=== PATIENT | male | born 1995 ===

== ENCOUNTER 2021-06-04 08:27 | Outpatient (CLI) | payer OTHER ==
--- NOTE | 2021-06-04 09:11 | SLEEP CARE CONSULTATION ---
Information from patient questionnaire entered by Howie Whitfield. I have reviewed and concur with the information entered by Howie Whitfield. This document represents the service I personally performed and the decisions made by me, Janis Rock ARNP. History of Present Illness Service Date and Time: 06/04/2021826 Reason for Visit: New patient Chief Complaint: reports: Unrefreshed sleep, Snoring, Excessive daytime sleepiness, Observed pauses in breathing Date of Onset: Over a year Usual bedtime: 1100 PM - 0500 AM Time it takes to fall asleep: 10 mins Snores at night: Yes Observed to quit breathing while asleep: Yes Sleeps alone due to snoring: No Reasons for waking at night: reports: Snoring, Gasping for air Toss, Turn, or Twitch while sleeping: Yes Recalls having dreams: Yes Usually gets out of bed at: 0500 Feels refreshed in the morning: No Morning headache: Yes (1-2 times a week) Sleepy or fatigued during the day: Yes Ever fallen asleep while driving: No (no drowsy driving or accidents) Takes day naps: No Dreams during day naps: Yes Prior sleep studies: No Additional HPI information: I had the pleasure of seeing KORTNEY RANDHAWA today regarding the possibility of him having a sleep disorder. His current complaints are unrefreshed sleep, observed pauses in breathing and snoring. His tells him that he has pauses when sleeping for 20-30 seconds. She will have to wake him up because it scares her. He snores really loud. He wakes up feeling very tired and not refreshed. He will wake up at 5 AM every morning for many years. He is sleepy during the day. He can fall asleep after lunch if he sits quietly. He has remembered times when he will doze off for 3 minutes and remember a dream he was in and other times he does not remember his dreams when sleeping a full night. He states he grinds his teeth and talks in his sleep. He wakes up with headaches in the morning if he sleeps less than 5 hours, this happens 1-2 times a week. 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 Patient is single and lives in [place]. Have you smoked in the past 12 months: Yes Cigarettes per day (20/pack): 5 Years of smokin Smoking Pack Years: 2.0 Alcohol use: Yes Alcohol amount and frequency: 1 bottle of beer per week, social Caffeine use: Yes Caffeine amount and frequency: 1 coffee every day Family History Family history of sleep disordered breathing: Yes Family Hx Sleep Apnea: Father: Snoring, Sleep apnea - Untreated Allergies and Home Medications Drug allergies reviewed: Yes (penicillin) Home medication list reviewed: Yes (no daily medications) Allergy and home medication list: BCAA supplement Protein drinks Review of Systems Cardiovascular: denies: high blood pressure Respiratory: reports: shortness of breath Gastrointestinal: denies: heartburn Neurological: denies: headaches Psychiatric: denies: anxiety, depression Ear/Nose/Throat: reports: tonsillectomy. denies: injury to nose, wisdom teeth removed (only has one, none removed) Endocrine: denies: thyroid disease Physical Exam Blood Pressure: 138/60 Cuff size: wrist Heart Rate: 60 O2 Saturation: 99 Height: 5 ft 6 in Weight: 182 lb Body Mass Index: 29.3 BMI Classification: Overweight Neck circumference: 15.5 (inches) Mouth and throat: narrow oropharynx Soft palate: long Hard palate: normal Uvula: normal Uvula visualization: 50% Mallampati Class II Tongue: enlarged in size with teeth heart on lateral edges Tonsils: absent bilaterally Neck: normal w/o lymphadenopathy or thyromegaly Heart: regular rate and rhythm Lungs: clear bilaterally Impression and Plan 1. Suspected Obstructive Sleep Apnea-Hypopnea Syndrome, as suggested by a history of loud and irregular snoring, observed cessation of breath while asleep, gasping or choking in sleep, morning headache, unrefreshed sleep, cognitive impairment, and excessive daytime sleepiness. Narrow oropharynx and o besity are common predisposing factors for obstructive sleep apnea-hypopnea syndrome. I recommend proceeding to polysomnography to confirm the diagnosis and to assess severity. If the patient has significant sleep disordered breathing, a manual CPAP titration study will also be performed to find the optimal treatment pressure. I informed the patient of what the sleep studies involve and after some discussion, obtained agreement to proceed. The pathophysiology of obstructive sleep apnea-hypopnea syndrome was discussed with the patient and health risks of cardiovascular and cerebrovascular disease if not treated. AAS brochure for obstructive sleep apnea-hypopnea syndrome given and reviewed. Risks of drowsy driving discussed in detail and patient advised to avoid long distance driving and to press puller at the first sign of drowsiness. Patient agreed to plan. * Schedule polysomnography +- manual CPAP titration study and return in 1-2 weeks after the study to discuss result and initiate therapy. * Avoid long distance driving or driving when feeling sleepy. * Avoid alcohol, sedative and muscle relaxant around bedtime. * Attempt to lose weight. * Review instructions provided by trained office staff on how to prepare for the sleep study. * Return for follow-up after sleep study completed. Counseling Topics: Weight loss health impact Visit Type: In Office Time Spent with Patient (minutes): 31 Provider Statement: I spent 100% of the Face to Face Visit with the patient with greater than 50% spent counseling the patient and coordination of care.
[2021-06-04 09:12] VITALS: BP 138/60
== END 2021-06-04 08:28 | disposition home or self-care (01) ==
LOC: SC 08:27
PROVIDERS: ATTEND Nurse Practitioner Family
DX: R06.83 Snoring (principal); R06.81 Apnea, not elsewhere classified; R51.9 Headache, unspecified; G47.8 Other sleep disorders; R41.89 Other symptoms and signs involving cognitive functions and awareness; G47.10 Hypersomnia, unspecified
CPT/HCPCS: 99203; 99212

== ENCOUNTER 2021-06-09 13:01 | Outpatient (CLI) | payer OTHER | END 2021-06-09 13:02 | disposition home or self-care (01) | LOC: SC 13:01 | PROVIDERS: ATTEND Nurse Practitioner Family | DX: G47.33 Obstructive sleep apnea (adult) (pediatric) (principal) | CPT/HCPCS: 95806 ==

== ENCOUNTER 2021-07-01 09:07 | Outpatient (CLI) | payer OTHER ==
--- NOTE | 2021-07-01 09:36 | SLEEP CARE CONSULTATION ---
Information from patient questionnaire entered by Jahaira Colon. I have reviewed and concur with the information entered by Jahaira Colon. This document represents the service I personally performed and the decisions made by , Janis Rock ARNP. History of Present Illness Service Date and Time: 07/01/2021 09 Initial [place] Sleepiness Scale score: 15 (in 2020) Current [place] Sleepiness Scale score: 15 Additional HPI information: KORTNEY RANDHAWA returns for follow up and results of the recently performed home sleep study. I explained the pathophysiology behind obstructive sleep apnea. We then spent quite a bit of time discussing different treatment options. For mild obstructive sleep apnea, surgery and oral appliance are alternatives to nasal CPAP therapy but in moderate or severe cases, nasal CPAP is the most effective and reliable treatment. Because apnea is primarily in supine position, then positional management therapy could be effective. Methods discussed such as positioning with pillows, using a T-shirt with tennis balls in the back, and shown commercial products that have a pillow format on back to prevent supine sleep. I reviewed the impact of weight changes on sleep apnea and strongly recommended losing weight. Patient counseled not drink alcohol less than 4 hours before bedtime as it can increase snoring and apnea. Patient was cautioned about risks of drowsy driving until sleepiness symptoms resolve. Sleep Study - Results Type of Sleep Study: Home sleep study Prior sleep studies: No Polysomnography/Home Sleep Study results: Physician Impression: The quality of the study is good. The length of the study is adequate (> 240 minutes). Please also see the tabulated and graphic data. 1. Obstructive Sleep Apnea-Hypopnea (ICD-10 G47.33), mild, with an AHI of 9.0/hr and alivia SaO2 of 85%. During the study, the patient had 46 apneas (46 obstructive, 0 central, 0 mixed) and 7 hypopneas. The longest episode lasted 71.5 seconds. The respiratory events occurred almost exclusively during supine sleep (supine AHI was 10.5 and non-supine, 1.13). 2. Hypoxemia (ICD-10 R09.02), minimal, with the lowest oxygen saturation of 85 % and 0.4 minutes with SaO2 under 90%. Baseline oxygen saturation was normal (Average oxygen saturation was 96%). Allergies and Home Medications Home medication list reviewed: Yes (no changes) Review of Systems Review of systems same as previous: Yes (no changes) Physical Exam Heart Rate: 72 O2 Saturation: 99 Height: 5 ft 6 in Weight: 178 lb 12.8 oz Body Mass Index: 28.8 BMI Classification: Overweight Impression and Plan 1. Obstructive Sleep Apnea-Hypopnea Syndrome, mild, with lowest oxygen saturation of 85%. Obviously this is the cause of the patients symptoms of unrefreshed sleep, and excessive daytime sleepiness. Positive pressure therapy could benefit hypertension, diet controlled. Since patients apnea is primarily in supine position, patient advised to try positional therapy and agreed with plan. He is also advised to lose weight as this will reduce snoring and apnea. An oral appliance can also be used for snoring but often is not covered by insurance. Follow up is scheduled for one month to check effectiveness and if further evaluation indicated such a repeat study in supine position only to see if additional treatment indicated. * Positional therapy * Attempt to lose weight. * Avoid alcohol consumption near bedtime. * Avoid supine sleep * The patient is again cautioned about driving until sleepiness completely resolves. * Return one month after practicing positional therapy. I will assess response to therapy at that time. Counseling Topics: Weight loss health impact Visit Type: In Office Time Spent with Patient (minutes): 20 Provider Statement: I spent 100% of the Face to Face Visit with the patient with greater than 50% spent counseling the patient and coordination of care.
== END 2021-07-01 09:08 | disposition home or self-care (01) ==
LOC: SC 09:07
PROVIDERS: ATTEND Nurse Practitioner Family
DX: G47.33 Obstructive sleep apnea (adult) (pediatric) (principal); R09.02 Hypoxemia
CPT/HCPCS: 99212; 99213

== ENCOUNTER 2021-08-14 12:45 | Outpatient (CLI) | payer OTHER ==
--- NOTE | 2021-08-14 13:19 | SLEEP CARE CONSULTATION ---
Information from patient questionnaire entered by Suzie Moore. I have reviewed and concur with the information entered by Suzie Moore. This document represents the service I personally performed and the decisions made by me, Janis Rock ARNP. History of Present Illness Service Date and Time: 08/14/2021 1245 Previous diagnosis: Mild, Obstructive Sleep Apnea-Hypopnea Syndrome AHI: 9 Reason for follow up: other (6 weeks with positional therapy) Prior sleep studies: Yes Year and Where: 06/2021 [facility] Type of Sleep Study: Home sleep study HPI additional information: KORTNEY RANDHAWA was diagnosed to have mild, AHI 9.0, obstructive sleep apnea- hypopnea syndrome and returned today for Positional therapy 6 week follow-up. Sleep Study - Results Type of Sleep Study: Home sleep study Prior sleep studies: No CPAP Compliance Data Compliance data discussion: He states that most of the time he is able to stay on his side. He is using a positional belt to keep him on his side. His snoring has reduced. Subjective On therapy, patient: reports: sleeping better, awakening more refreshed, being more awake and alert during the day, more rested overall Initial [place] Sleepiness Scale score: 15 (in 2020) Current [place] Sleepiness Scale score: 11 Allergies and Home Medications Home medication list reviewed: Yes (no changes) Review of Systems Review of systems same as previous: Yes (no changes) Physical Exam Heart Rate: 78 O2 Saturation: 96 Height: 5 ft 6 in Weight: 186 lb (with boots/fatigues on) Body Mass Index: 29.9 BMI Classification: Overweight Impression and Plan 1. Obstructive Sleep Apnea-Hypopnea Syndrome, mild. Patient has been able to sleep consistently on his side with his positional belt. He states he does not notice a lot of difference from prior to positional therapy as far as fatigue and daytime sleepiness. His is much happier because he is not snoring loudly anymore at night. He wakes up feeling rested overall and has good sleep quality. Patient is going to have Lasix surgery and requires a letter stating that he can go without CPAP therapy post surgery to reduce complications. I composed a letter explaining that he is using positional therapy and does not require a CPAP post surgery. A copy was given to patient. Patient states he is not losing weight currently. I explained to him that if he gains weight it could increase the severity of his apneas. Patient was encouraged to lose we ight for their overall health and to reduce apneas. He voiced understanding. Patient's apnea severity and rationale for treatment to reduce apnea, improve sleep quality and reduce cardiovascular and cerebrovascular events was reviewed. * Continue positional therapy * Letter given to patient * Attempt to lose weight * Call this office if any problems * Return for follow up in 6 months, or sooner if concerns arise Counseling Topics: Weight loss health impact, Weight control Visit Type: In Office Time Spent with Patient (minutes): 22 Provider Statement: I spent 100% of the Face to Face Visit with the patient with greater than 50% spent counseling the patient and coordination of care.
== END 2021-08-14 12:46 | disposition home or self-care (01) ==
LOC: SC 12:45
PROVIDERS: ATTEND Nurse Practitioner Family
DX: G47.33 Obstructive sleep apnea (adult) (pediatric) (principal)
CPT/HCPCS: 99212; 99213

== ENCOUNTER 2021-10-25 18:13 | Emergency (ER) | payer OTHER ==
[2021-10-25 18:23] VITALS: BP 147/88
--- NOTE | 2021-10-25 18:25 | ED Physician Documentation ---
PD HPI OPHTHO - Stated complaint Stated Complaint: R EYE PX - Chief complaint Chief Complaint: Heent - History obtained from History obtained from: Patient - History of Present Illness Timing - onset: How many hours ago (2-3) Timing - duration: Hours (2-3) Timing - details: Abrupt onset (he was walking outside and got something blown into his eye. He saw something on surface of his eye, and washed it out when got into house. He persists with feeling of discomfort and says his vision is blurry. He is concerned that had PK eye surgery a month ago.) Location: Right Quality / character: Other (just surface discomfort feeling.) Associated symptoms: Redness, Tearing, Decreased vision. No: Photophobia, Double vision, Loss of vision Contributing factors: FB (something flew into eye in the wind outdoors.) Review of Systems Constitutional: denies: Fever, Chills Nose: denies: Rhinorrhea / runny nose, Congestion Throat: denies: Sore throat Respiratory: denies: Cough PD PAST MEDICAL HISTORY - Past Medical History Past Medical History: No Cardiovascular: None Respiratory: None Neuro: None Endocrine/Autoimmune: None GI: None : None HEENT: None Psych: None Musculoskeletal: None Derm: None - Past Surgical History Past Surgical History: Yes HEENT: Other - Present Medications Home Medications: Ambulatory Orders Medication Instructions Recorded Confirmed Ketotifen Fumarate [Alaway] 2 drops RIGHTEYE Q4H 3 Days #10 ml 10/25/21 - Allergies Allergies/Adverse Reactions: Allergies Allergy/AdvReac Type Severity Reaction Status Date / Time Penicillins Allergy Rash Verified 10/25/21 18:18 - Social History Does the pt smoke?: Yes Smoking Status: Current every day smoker Does the pt drink ETOH?: No - Immunizations Immunizations are current?: Yes PD ED PE NORMAL - Vitals Vital signs reviewed: Yes - General General: Alert and oriented X 3, No acute distress, Well developed/nourished PD ED PE EXPANDED - Eyes Eyes: Visual acuity - see nn (less on right eye. ), Right eye, Injected conj/sclera (mild to moderate hyperemia, with mild lower/lateral conjunctival swelling. ), Anterior chambers clear, Normal fundi, Other (IOP normal at 14). No: Corneal FB, Corneal abrasion, Fluorescein uptake, Hyphema Results - Vitals Vitals: Vital Signs - 24 hr 10/25/21 18:19 Temperature 36.3 C L Heart Rate 70 Respiratory 16 Rate Blood Pressure 147/88 H O2 Saturation 99 Oxygen O2 Source Room air PD MEDICAL DECISION MAKING - ED course Complexity details: considered differential (can check for abrasion, and dye u ptake. Also chambers and IOP. ), d/w patient ED course: normal exam except some conjunctival edema and redness. Presume that is affecting acuity. It may be just irritated or consider some "allergic" reaction (contact irritation) from the recent FB. Departure - Departure Disposition: 01 Home, Self Care Clinical Impression: Conjunctivitis, acute atopic Qualifiers: Laterality: right Qualified Code(s): H10.11 - Acute atopic conjunctivitis, right eye Condition: Stable Record reviewed to determine appropriate education?: Yes Instructions: ED Allergic Conjunctivitis Follow-Up: AMERICA CARTER DO [Primary Care Provider] - Prescriptions: Ketotifen Fumarate [Alaway] 2 drops RIGHTEYE Q4H 3 Days #10 ml Comments: I do not see any disruption on the surface of the eye nor any residual foreign body. There is some redness and mild inflammation of the conjunctive a and so I think you're having some irritation or allergic response to the material that had been in there. The inflammation on the surface is distorted in your vision at this point. I would anticipate that to improve into tomorrow the next day. There is no dye uptake on the surface of the eye so no signs of scratches abrasions or disruption of your flap from the recent PK surgery. The anterior and posterior chambers appear normal and the pressure in the eye is normal as well. At this point I would see how your I does into tomorrow and I would anticipate considerable improvement. If it's not all better or only moderately better, you could add an antihistamine eyedrop a few times a day presuming a more allergic type reaction on the surface. This medication is called ketotifen it is available prescription or [id number]. If your eye is mostly better into tomorrow than no need for this medicine. Tonight and tomorrow you can use the lubricating eyedrops that you have at home. If you're not completely better by Wednesday, follow-up with your social work specialist here in [facility]. Discharge Date/Time: 10/25/21 19:01
== END 2021-10-25 19:01 | disposition home or self-care (01) ==
LOC: ED 18:13
DX: H10.11 Acute atopic conjunctivitis, right eye (principal); F17.200 Nicotine dependence, unspecified, uncomplicated
CPT/HCPCS: 99282; 99283

== ENCOUNTER 2024-04-08 08:00 | Outpatient (CLI) | payer OTHER | END 2024-04-08 23:59 | disposition home or self-care (01) | LOC: LAB.N 08:00 | PROVIDERS: ATTEND Family Medicine | DX: L02.214 Cutaneous abscess of groin (principal) | CPT/HCPCS: 87070; 87077; 87205 ==

== ENCOUNTER 2024-04-12 13:55 | Emergency (ER) | payer OTHER ==
[2024-04-12 14:26] LABS: BASOPHILS % (AUTO) 0.4 %; EOSINOPHILS # (AUTO) 0.1 10^3/uL (0.0-0.7); EOSINOPHILS % (AUTO) 0.9 %; HGB - HEMOGLOBIN 16.5 g/dL (14.0-18.0); LYMPHOCYTES # (AUTO) 2.1 10^3/uL (1.5-3.5); LYMPHOCYTES % (AUTO) 37.1 %; MEAN CORPUSCULAR HEMOGLOBIN 30.1 pg (27.0-31.0); MEAN CORPUSCULAR HGB CONC 34.4 g/dL (32.0-36.0); MEAN CORPUSCULAR VOLUME 87.4 fL (80.0-94.0); MEAN PLATELET VOLUME 9.1 fL (7.4-11.4); MONOCYTES # (AUTO) 0.5 10^3/uL (0.0-1.0); MONOCYTES % (AUTO) 9.4 %; NEUTROPHILS # (AUTO) 2.9 10^3/uL (1.5-6.6); PLT - PLATELET COUNT 262 10^3/uL (130-450); RED BLOOD COUNT 5.49 10^6/uL (4.70-6.10); RED CELL DISTRIBUTION WIDTH 11.8 % (12.0-15.0); WHITE BLOOD COUNT 5.6 x10^3/uL (4.8-10.8)
[2024-04-12 14:40] LABS: ALBUMIN 5.1 g/dL (3.2-5.5); ALBUMIN/GLOBULIN RATIO 1.8 (1.0-2.2); BILIRUBIN,TOTAL 0.6 mg/dL (0.2-1.0); CALCIUM 10.4 mg/dL (8.5-10.3); CREATININE 1.1 mg/dL (0.6-1.3); POTASSIUM 4.8 mmol/L (3.5-4.5); TOTAL PROTEIN 7.9 g/dL (6.4-8.9)
[2024-04-12] MEDS ORDERED: iohexoL-300 100 ML VIAL ONE (18:19)
[2024-04-12] MEDS: iohexoL-300 100 ML VIAL IVP ONE (19:10)
--- NOTE | 2024-04-12 19:45 | CT Report ---
PROCEDURE: Abdomen/Pelvis W INDICATIONS: RUQ pain CONTRAST: 100ml [id number] TECHNIQUE: After the administration of intravenous contrast, a CT scan of the abdomen and pelvis was performed. Images were recorded and evaluated at appropriate window settings. Reformats: coronal and sagittal. F or radiation dose reduction, the following was used: automated exposure control, adjustment of mA and /or kV according to patient size. COMPARISON: None. FINDINGS: Image quality: Diagnostic. Lower chest: Unremarkable. Liver: No solid mass. Gallbladder: The gallbladder wall thickening is seen. No pericholecystic fluid can be seen. Biliary tree: No intrahepatic or extrahepatic dilation, accounting for age. Spleen: No splenomegaly. An accessory splenule is incidentally noted along the hilum of the primary spleen. Pancreas: No pancreatic ductal dilation. Adrenals: No adrenal nodule. Kidneys and ureters: No hydronephrosis. No renal cystic lesion which requires follow up. No solid mas s. Stomach, bowel and peritoneum: No gastric or small bowel dilation. No abnormal wall thickening. No pa thologic free fluid. No significant abnormality of the appendix is seen. A mild volume of stool is seen within the colon. Lymph nodes: No central or retroperitoneal adenopathy. Vessels: No infrarenal aortic aneurysm. Patent portal vein. PELVIS Reproductive organs: Unremarkable. Bladder: No abnormal wall thickening, accounting for underdistention. Pelvic lymph nodes: No pelvic adenopathy by size criteria. Bones: No aggressive osseous abnormality. Other: No significant ventral or inguinal hernia. IMPRESSION: No imaging explanation is found for the patient's presenting symptoms. No significant colonic abnormality is seen. A mild volume of stool seen within the colon, which is not considered to be abnormal. Normal appearing gallbladder by CT. No significant abnormality of the appendix is seen. Additional findings: Accessory splenule Reviewed by: Everardo Arreola MD on 04/12/2024 6:44 PM FRANCK Approved by: Everardo Arreola MD on 04/12/2024 6:44 PM AKRICKY Station ID: [id number]
--- NOTE | 2024-04-12 20:15 | ED Physician Documentation ---
PD HPI ABD PAIN - Stated complaint Stated Complaint: ABD PX,DISCOMFORT - Chief complaint Chief Complaint: Abd Pain - Additional information Additional information: 28-year-old male with possible history of H. pylori although it was difficult gathering patient's history. Patient says that he has been having right lower quadrant pain and tenderness now for the last couple days his main concern is cancer no recent weight loss no night sweats. Patient says that he had an endoscopy couple years ago and was diagnosed with some sort of infection completed all antibiotics and says for the most part it has been well resolved. Over the last couple days has been having bowel movements that he says that have a texture consistent with oatmeal and a fishy odor smell. Abdominal pain at this point in time is pretty minimal but it comes and goes away as per patient no diarrhea over the last 2 to 3 days no emesis mild lingering nausea no recent medication changes or antibiotics. PD PAST MEDICAL HISTORY - Past Medical History Cardiovascular: None Respiratory: None Neuro: None Endocrine/Autoimmune: None GI: None : None HEENT: None Psych: None Musculoskeletal: None Derm: None - Past Surgical History Past Surgical History: Yes HEENT: Other - Present Medications Home Medications: Ambulatory Orders Medication Instructions Recorded Confirmed Ketotifen Fumarate [[place]] 2 drops RIGHTEYE Q4H 3 Days #10 ml 10/25/21 04/12/24 Mupirocin 2% Oint [Bactroban 2% 1 applic TOP DAILY 04/12/24 04/12/24 Oint] Sulfamethox/Trimeth 800/160 1 tab PO BID 04/12/24 04/12/24 [Bactrim Ds] - Allergies Allergies/Adverse Reactions: Allergies Allergy/AdvReac Type Severity Reaction Status Date / Time Penicillins Allergy Rash Verified 04/12/24 14:12 - Social History Does the pt smoke?: Yes Smoking Status: Current every day smoker Does the pt drink ETOH?: No - Immunizations Immunizations are current?: Yes PD ED PE NORMAL - Vitals Vital signs reviewed: Yes - General General: Alert and oriented X 3, No acute distress, Well developed/nourished - Abdomen Abdomen: Normal bowel sounds, Soft, Non tender, No organomegaly, Other (Right lower quadrant tenderness) - Back Back: No CVA TTP - Derm Derm: Normal color, Warm and dry, No rash Results - Vitals Vitals: Vital Signs - 24 hr 04/12/24 04/12/24 04/12/24 14:05 18:00 20:32 Temperature 36.3 C L Heart Rate 73 70 70 Respiratory 18 16 16 Rate Blood Pressure 138/88 H 138/83 H 130/105 H O2 Saturation 99 94 98 Oxygen O2 Source Room air - Labs Labs: Laboratory Tests 04/12/24 04/12/24 14:23 14:23 WBC 5.6 RBC 5.49 Hgb 16.5 Hct 48.0 MCV 87.4 MCH 30.1 MCHC 34.4 RDW 11.8 L Plt Count 262 MPV 9.1 Neut # (Auto) 2.9 Lymph # (Auto) 2.1 [place] # (Auto) 0.5 Eos # (Auto) 0.1 Baso # (Auto) 0.0 Absolute Nucleated RBC 0.00 Nucleated RBC % 0.0 Sodium 137 Potassium 4.8 H Chloride 103 Carbon Dioxide 30 Anion Gap 4.0 L BUN 16 Creatinine 1.1 Estimated GFR (MDRD) 79 L Glucose 85 Calcium 10.4 H Total Bilirubin 0.6 AST 13 ALT 15 Alkaline Phosphatase 59 Total Protein 7.9 Albumin 5.1 Globulin 2.8 Albumin/Globulin Ratio 1.8 Lipase 20 PD Medical Decision Making - ED course ED course: 28-year-old male presents emergency department for right lower quadrant pain. Differentials include but not limited to constipation, diverticulitis, neoplasm, appendicitis. Labs are complete for further evaluation no leukocytosis no anemia. Potassium was found to be slightly elevated at 4.8 as well as a mildly elevated calcium at 10.4. GFR 79. This is most likely due to dehydration. CT was complete for further evaluation no obvious reasons found as to why patie nt is experiencing right lower quadrant pain no appendicitis no diverticulitis he does have some mild volume of stool seen within the colon which is unremarkable. Patient is told to follow-up with his primary care provider as well as his GI doctor who has established with an Jose E Al for further evaluation and possible colonoscopy. As well as possible stool samples. Patient has had no diarrhea while here in the emergency department safer discharge return precautions given. Departure - Departure Disposition: 01 Home, Self Care Clinical Impression: Abdominal pain Instructions: Abdominal Pain Comments: Thank you for trusting us with your care we have completed CT scan of your abdomen we are not seeing any acute abnormalities or findings at this point in time. We also completed labs your potassium is a little bit on the high side I would recommend following up with your primary care provider to have your labs reevaluated in about a week or so as well as having your calcium reevaluated because this is also slightly on the elevated side. There is nothing we need to do about that here in the emergency department going home make sure that you are drinking plenty of fluids and follow-up with your primary care provider for possible stool sample testing as well as a possible GI referral for possible colonoscopy for further evaluation of your diarrhea and abdominal pain. Forms: PCP List Discharge Date/Time: 04/12/24 20:32
[2024-04-12 20:38] VITALS: BP 130/105; O2SAT 98
== END 2024-04-12 20:32 | disposition home or self-care (01) ==
LOC: ED 13:55
DX: R10.31 Right lower quadrant pain (principal); F17.200 Nicotine dependence, unspecified, uncomplicated; Z79.899 Other long term (current) drug therapy
CPT/HCPCS: 36415; 74177; 80053; 83690; 85025; 99284; Q9967